=== PATIENT | female | born 1960 | race Caucasian/White ===

== ENCOUNTER 2017-06-26 14:28 | Emergency (ER) | payer MEDICAID ==
[2017-06-26 14:42] VITALS: TEMP 99.1
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
[2017-06-26 16:49] VITALS: BP 129/77; PULSE 76; RESP 16; O2SAT 98
== END 2017-06-26 16:52 | disposition home or self-care (01) ==
LOC: ED 14:28
DX: S16.1XXA Strain of muscle, fascia and tendon at neck level, initial encounter (principal); V49.59XA Passenger injured in collision with other motor vehicles in traffic accident, initial encounter; Y92.410 Unspecified street and highway as the place of occurrence of the external cause

== ENCOUNTER 2017-07-10 14:26 | Emergency (ER) | payer OTHER, MEDICAID ==
[2017-07-10 14:41] VITALS: TEMP 98.4; O2SAT 99
[2017-07-10 14:59] VITALS: BMI 28.3
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
[2017-07-10 16:27] VITALS: BP 145/65; PULSE 79; RESP 18
== END 2017-07-10 16:56 | disposition home or self-care (01) ==
LOC: ED 14:26
DX: S16.1XXA Strain of muscle, fascia and tendon at neck level, initial encounter (principal); V49.59XA Passenger injured in collision with other motor vehicles in traffic accident, initial encounter; Y92.410 Unspecified street and highway as the place of occurrence of the external cause
CPT/HCPCS: 29240; 70450; 71010; 72125; 96372; 99284; J1885